=== PATIENT | female | born 1975 ===

== ENCOUNTER 2017-08-30 16:24 | Emergency (ER) | payer SELFPAY ==
[~2017-08-30] VITALS: Ht 167.6 cm; Wt 111.1 kg
[2017-08-30] MEDS ORDERED: BENAZEPRIL HCL40 MG ORAL (16:45)
[2017-08-30 16:54] VITALS: BP 206/111
[2017-08-30] MEDS ORDERED: Dicyclomine HCl 10mg/5ml oral soln ORAL ONE (17:15)
[2017-08-30] MEDS ORDERED: Mylanta II UD 30ml ORAL ONE (17:15)
[2017-08-30] MEDS ORDERED: Lidocaine 2% Visc 15ml soln ORAL ONE (17:15)
--- NOTE | 2017-08-30 17:31 | Emergency Room Report ---
History of Present Illness General Chief Complaint: Abdominal Pain Source: Patient Present Illness HPI 41-year-old female patient presents to ER complaining of epigastric pain since this morning. Reports pain radiates to her back. Denies vomiting or diarrhea. Reports history of reflux, reports has taken omeprazole in the past for treatment of symptoms. Reports history of diabetes, not controlled, does not take medication. Also reports history of high blood pressure, states that she takes her mother's benazepril medication. Reports recent travel to [facility], denies contacts with similar symptoms. Denies chest pain, shortness of breath, dysuria, hematuria. Reports history of appendectomy "many years ago". Denies other acute symptoms at this time. reports took Tylenol earlier today with mild relief of symptoms. Allergies: Coded Allergies: No Known Allergies (Unverified , 08/30/17) Patient History Past Medical History: see triage record Last Menstrual Period: Current Reviewed Nursing Documentation: PMH: Agreed; PSxH: Agreed Nursing Documentation-PMH Hx Hypertension: Yes Hx Diabetes: Yes Review of Systems All Other Systems: negative except mentioned in HPI Physical Exam Vital Signs Date Time Temp Pulse Resp B/P (MAP) Pulse Ox O2 Delivery O2 Flow Rate FiO2 08/30/17 16:41 98.2 74 19 197/111 99 Room Air 98.2 Sp02 EP Interpretation: reviewed, normal General Appearance: well appearing, no apparent distress, alert, GCS 15, non- toxic Head: normocephalic, atraumatic Eyes: bilateral eye normal inspection, bilateral eye PERRL ENT: hearing grossly normal, normal pharynx, no angioedema, normal voice, uvula midline, moist mucus membranes Neck: full range of motion Respiratory: lungs clear, normal breath sounds, no rhonchi, no respiratory distress, no accessory muscle use, no wheezing, speaking full sentences Cardiovascular #1: regular rate, rhythm, no edema Gastrointestinal: soft, no mass, non-distended, no guarding, no rebound, tenderness - Generalized, other - Negative Rovsing, negative Smith Genitourinary: no CVA tenderness Musculoskeletal: back normal, digits/nails normal, gait/station normal, normal range of motion, non-tender Neurologic: alert, oriented x3, responsive, motor strength/tone normal, sensory intact Psychiatric: mood/affect normal Skin: no rash Medical Decision Making PA Attestation Dr. Prescott is my supervising Physician whom patient management has been discussed with. Diagnostic Impression: Primary Impression: Acid reflux ER Course Pt. presents to the ED c/o abdominal pain. Ddx considered but are not limited to UTI, cholelithiasis, cholecystitis, pancreatitis, diverticulitis. negative Smith sign, low suspicion for cholecystitis. Begin abdominal pain workup. Provided patient with pain medication. Vital signs: are WNL, pt. is afebrile. patient blood pressure elevated, reports history of hypertension, continue to monitor, denies chest pain or shortness of breath at this time. ordered labs and troponin to rule out NH or other cardiac pathology. Patient reports did not take HTN medication today. does not require acute intervention at this time. ORDERS: CBC, CMP, Lipase, UA, EKG, CXR, Urine , CT abdomen pelvis, GI cocktail, Zofran. ER COURSE: CBC and CMP unremarkable, elevation of LFTs mild elevation of WBC possibly related to pain symptoms.does not require treatment with antibiotics at this time. Blood sugar unremarkable. Lipase within normal limits. UA negative for nitrites, patient is symptomatic, low suspicion for UTI, does not require treatment with antibiotics at this time. Urine negative. UDS negative EKG shows no ST elevations or arrhythmia chest x-ray shows mild pulmonary congestion and cardiomegaly, likely due to uncontrolled hypertension. CT abdomen pelvis shows 1. Mildly thickened proximal small bowel which may be underdistention versus enteritis. No bowel obstruction or diverticulitis. 2. No hydronephrosis or ureteral calculus. Does not require acute intervention in the ER at this time. Patient reports relief of pain symptoms with medication while in ER. Informed patient symptoms likely related to reflux. Followup with PCP for management and treatment of reflux, HTN, and diabetes. Request further referral and imaging at that time. Avoid spicy food, avoid dairy. keep food journal. Drink plenty of fluids. provided omeprazole for patient, states that she normally takes. instructed patient that she should not take her mother's hypertension medication, needs to be seen and evaluated by her physician and prescribed her own medication. vital signs stable, blood pressure within acceptable limits. Patient was discharged to home. Resting comfortably no acute distress, nontoxic appearing, ambulating without difficulty. Patient reports that her boyfriend will be coming to the ER to get her and drive her home. DISCHARGE: Rx provided for Omeprazole Rx provided for Tylenol for pain symptoms. At this time pt. is stable for d/c to home. Patient resting comfortably, in no acute distress, nontoxic appearing, talking without difficulty. Rx provided to patient. Patient to take medications as instructed Will provide with patient care instructions and any necessary prescriptions. Care plan and follow-up instructions provided. Patient instructed to follow-up with primary care provider in 3 - 5 days. Patient questions asked and answered. Patient reports understanding and agreement to treatment plan. ER precautions given. Patient instructed to return to ER immediately for any new or worsening of symptoms including but not limited to increasing SOB, persistent fever, worsening of pain symptoms, intractable vomiting, blood in stool, urine, and/or emesis. - Please note that this Emergency Department Report was dictated using [employer] operator technology software, occasionally this can lead to erroneous entry secondary to interpretation by the dictation equipment. Labs Test 08/30/17 17:15 08/30/17 17:48 White Blood Count 12.5 K/UL (4.8-10.8) Red Blood Count 5.17 M/UL (4.20-5.40) Hemoglobin 11.5 G/DL (12.0-16.0) Hematocrit 35.9 % (37.0-47.0) Mean Corpuscular Volume 69 FL (80-99) Mean Corpuscular Hemoglobin 22.3 PG (27.0-31.0) Mean Corpuscular Hemoglobin Concent 32.2 G/DL (32.0-36.0) Red Cell Distribution Width 17.0 % (11.6-14.8) Platelet Count 379 K/UL (150-450) Mean Platelet Volume 5.8 FL (6.5-10.1) Neutrophils (%) (Auto) 80.9 % (45.0-75.0) Lymphocytes (%) (Auto) 10.5 % (20.0-45.0) Monocytes (%) (Auto) 6.6 % (1.0-10.0) Eosinophils (%) (Auto) 1.4 % (0.0-3.0) Basophils (%) (Auto) 0.6 % (0.0-2.0) Urine Color Pale yellow Urine Appearance Clear Urine pH 7 (4.5-8.0) Urine Specific [place] 1.010 (1.005-1.035) Urine Protein Negative (NEGATIVE) Urine Glucose (UA) Negative (NEGATIVE) Urine Ketones Negative (NEGATIVE) Urine Occult Blood 4+ (NEGATIVE) Urine Nitrite Negative (NEGATIVE) Urine Bilirubin Negative (NEGATIVE) Urine Urobilinogen Normal MG/DL (0.0-1.0) Urine Leukocyte Esterase 1+ (NEGATIVE) Urine RBC 2-4 /HPF (0 - 2) Urine WBC 0-2 /HPF (0 - 2) Urine Squamous Epithelial Cells Few /LPF (NONE/OCC) Urine Bacteria Few /HPF (NONE) Urine HCG, Qualitative Negative (NEGATIVE) Sodium Level 137 MMOL/L (136-145) Potassium Level 3.7 MMOL/L (3.5-5.1) Chloride Level 102 MMOL/L (98-107) Carbon Dioxide Level 27 MMOL/L (21-32) Anion Gap 8 mmol/L (5-15) Blood Urea Nitrogen 10 mg/dL (7-18) Creatinine 0.6 MG/DL (0.55-1.30) Estimat Glomerular Filtration Rate > 60 mL/min (>60) Glucose Level 109 MG/DL (74-106) Calcium Level 8.5 MG/DL (8.5-10.1) Total Bilirubin 0.3 MG/DL (0.2-1.0) Aspartate Amino Transf (AST/SGOT) 13 U/L (15-37) Alanine Aminotransferase (ALT/SGPT) 19 U/L (12-78) Alkaline Phosphatase 109 U/L (46-116) Troponin I 0.000 ng/mL (0.000-0.056) Total Protein 8.4 G/DL (6.4-8.2) Albumin 3.4 G/DL (3.4-5.0) Globulin 5.0 g/dL Albumin/Globulin Ratio 0.7 (1.0-2.7) Lipase 166 U/L (73-393) Human Chorionic Gonadotropin, Quant < 1 mIU/mL (1-6) Urine Opiates Screen Negative (NEGATIVE) Urine Barbiturates Screen Negative (NEGATIVE) Phencyclidine (PCP) Screen Negative (NEGATIVE) Urine Amphetamines Screen Negative (NEGATIVE) Urine Benzodiazepines Screen Negative (NEGATIVE) Urine Cocaine Screen Negative (NEGATIVE) Urine Marijuana (THC) Screen Negative (NEGATIVE) EKG Diagnostic Results Rate: normal Rhythm: NSR, other ST Segments: no acute changes ASA given to the pt in ED: No PA Scribe Text Ken Wen PA-C Rhythm Strip Diag. Results EP Interpretation: yes Rate: 65 Rhythm: NSR, no PVC's, no ectopy PA Scribe Text Ken Wen PA-C Chest X-Ray Diagnostic Results Chest X-Ray Diagnostic Results : Chest X-Ray Ordered: Yes # of Views/Limited/Complete: 1 View Indication: Other EP Interpretation: Yes PA Xray: Interpretation reviewed, by supervising MD, and agrees with findings. Interpretation: no consolidation, no effusion, no pneumothorax, other - mild cardiomegaly Impression: Other - mild cardiomegaly, pulmonary vascular congestion vs hypoventilation AIDA Scribe Text Ken Wen PA-C CT/MRI/US Diagnostic Results CT/MRI/US Diagnostic Results : Imaging Test Ordered: CT abdomen pelvis Impression 1. Mildly thickened proximal small bowel which may be underdistention versus enteritis. No bowel obstruction or diverticulitis. 2. No hydronephrosis or ureteral calculus. Last Vital Signs Date Time Temp Pulse Resp B/P (MAP) Pulse Ox O2 Delivery O2 Flow Rate FiO2 08/30/17 16:54 98.2 78 19 206/111 100 Room Air 98.2 Disposition: HOME, SELF-CARE Condition: Stable Scripts Omeprazole (OMEPRAZOLE) 20 Mg Capsule.dr 20 MG ORAL DAILY, #30 CAP Prov: Patel Wen 08/30/17 Acetaminophen* (TYLENOL EXTRA STRENGTH*) 500 Mg Tablet 500 MG ORAL Q8H PRN for Prn Headache/Temp > 101, #30 TAB 0 Refills Prov: Patel Wen 08/30/17 Patient Instructions: Food Choices for Gastroesophageal Reflux Disease, Child, [id number], Gastroesophageal Reflux Disease, Adult Additional Instructions: Followup with primary care provider in 3 -5 days for further treatment and referral to GI. Discuss treatment and management for diabetes and high blood pressure. Keep food journal of foods eaten and times of symptom onset. Take medications as directed. Patient questions asked and answered. ER precautions given, patient instructed to return to ER immediately for any new or worsening of symptoms including but not limited to chest pain, SOB, abdominal pain, blood in vomit. Drink fluids as tolerated to prevent dehydration. Take Tylenol OTC for pain, easier on stomach. Avoid spicy foods, avoid dairy. Do not eat late night meals. Elevate head of bed when sleeping. Patel Wen. Aug 30, 2017 17:31
[2017-08-30 17:33] LABS: BASOPHILS % (AUTO) 0.6 % (0.0-2.0); EOSINOPHILS % (AUTO) 1.4 % (0.0-3.0); HEMATOCRIT 35.9 % (37.0-47.0); HEMOGLOBIN 11.5 G/DL (12.0-16.0); LYMPHOCYTES % (AUTO) 10.5 % (20.0-45.0); MEAN CORPUSCULAR VOLUME 69 FL (80-99); MONOCYTES % (AUTO) 6.6 % (1.0-10.0); NEUTROPHILS % (AUTO) 80.9 % (45.0-75.0); PLATELET COUNT 379 K/UL (150-450); RED BLOOD COUNT 5.17 M/UL (4.20-5.40); WHITE BLOOD COUNT 12.5 K/UL (4.8-10.8)
[2017-08-30 17:34] LABS: APPEARANCE,URINE CLEAR; BILIRUBIN, URINE NEGATIVE (NEGATIVE); COLOR,URINE PALE YELLOW; GLUCOSE, URINE (UA) NEGATIVE (NEGATIVE); KETONES,URINE NEGATIVE (NEGATIVE); LEUKOCYTE ESTERASE ,URINE 1+ (NEGATIVE); NITRITE,URINE NEGATIVE (NEGATIVE); PH,URINE 7 (4.5-8.0); PROTEIN,URINE NEGATIVE (NEGATIVE); UROBILINOGEN,URINE NORMAL MG/DL (0.0-1.0)
--- NOTE | 2017-08-30 17:35 | Diagnostic Imaging Report ---
EXAM: XR Chest, 1 View CLINICAL HISTORY: ABD PAIN TECHNIQUE: Frontal view of the chest. COMPARISON: No relevant prior studies available. FINDINGS: Lungs: Possible mild pulmonary vascular congestion, versus hypoventilation. No focal consolidation. Pleural space: Unremarkable. No pneumothorax. Heart: Mildly prominent heart size. Mediastinum: Unremarkable. Bones/joints: Unremarkable. IMPRESSION: Possible mild pulmonary vascular congestion, versus hypoventilation. No focal consolidation.
[2017-08-30 17:55] LABS: ANION GAP 8 mmol/L (5-15); BLOOD UREA NITROGEN 10 mg/dL (7-18); CALCIUM 8.5 MG/DL (8.5-10.1); CARBON DIOXIDE 27 MMOL/L (21-32); CHLORIDE 102 MMOL/L (98-107); CREATININE 0.6 MG/DL (0.55-1.30); POTASSIUM 3.7 MMOL/L (3.5-5.1); SODIUM 137 MMOL/L (136-145)
[2017-08-30 17:59] LABS: ALANINE AMINOTRANSFERASE 19 U/L (12-78); ALBUMIN 3.4 G/DL (3.4-5.0); ALBUMIN/GLOBULIN RATIO 0.7 (1.0-2.7); ALKALINE PHOSPHATASE 109 U/L (46-116); ASPARTATE AMINO TRANSFERASE 13 U/L (15-37); BILIRUBIN,TOTAL 0.3 MG/DL (0.2-1.0)
[2017-08-30] MEDS ORDERED: Norco 5mg/325mg tab ORAL ONE (18:00)
[2017-08-30] MEDS ORDERED: Ketorolac 30mg Inj IV ONE (18:00)
[2017-08-30 18:22] VITALS: BP 183/79
--- NOTE | 2017-08-30 18:27 | Diagnostic Imaging Report ---
EXAM: CT Abdomen and Pelvis Without Intravenous Contrast CLINICAL HISTORY: ABD PAIN TECHNIQUE: Axial computed tomography images of the abdomen and pelvis without intravenous contrast. CTDI is 20 mGy and DLP is 1057 mGy-cm. One or more of the following dose reduction techniques were used: automated exposure control, adjustment of the mA and/or kV according to patient size, use of iterative reconstruction technique. COMPARISON: No relevant prior studies available. FINDINGS: Lung bases: No mass. No consolidation. ABDOMEN: Liver: Unremarkable. Gallbladder and bile ducts: Unremarkable. No calcified stones. Pancreas: Unremarkable. Spleen: Unremarkable. Adrenals: Unremarkable. Kidneys and ureters: No hydronephrosis or ureteral calculus. Stomach and bowel: Mildly thickened proximal small bowel which may be underdistention versus enteritis. No bowel obstruction or diverticulitis. PELVIS: Appendix: Appendectomy. Bladder: Distended bladder. Reproductive: Unremarkable as visualized. ABDOMEN and PELVIS: Intraperitoneal space: No free air. Bones/joints: No acute fracture. Soft tissues: Unremarkable. Vasculature: Unremarkable. Lymph nodes: Unremarkable. No enlarged lymph nodes. IMPRESSION: 1. Mildly thickened proximal small bowel which may be underdistention versus enteritis. No bowel obstruction or diverticulitis. 2. No hydronephrosis or ureteral calculus.
[2017-08-30 18:56] VITALS: BP 152/68
[2017-08-30] MEDS ORDERED: OMEPRAZOLE20 M2 ORAL (19:42)
[2017-08-30] MEDS ORDERED: TYLENOL EXTRA500 MG ORAL (19:42)
[2017-08-30 20:09] VITALS: BP 143/64
[2017-08-30 20:10] VITALS: BP 152/68
--- NOTE | 2017-09-03 15:26 | Cardiology Report ---
APPROVED REPORT EKG Measurement Heart [id number] Normal sinus rhythm Normal ECG
== END 2017-08-30 20:10 | disposition home or self-care (01) ==
LOC: EMR 17:56
DX: K21.9 Gastro-esophageal reflux disease without esophagitis (principal); I10 Essential (primary) hypertension; E11.9 Type 2 diabetes mellitus without complications
CPT/HCPCS: 36415; 71045; 74176; 80053; 80307; 81003; 81025; 83690; 84484; 84702; 85025; 93005; 96360; 96374; 96375; 99284; J1885; J2405